=== PATIENT | male | born 1975 ===

== ENCOUNTER 2016-10-12 22:18 | Emergency (ER) | payer SELFPAY ==
[2016-10-12] MEDS ORDERED: DiphenhydrAMINE 50 mg/ml Inj IVP STA (22:50)
[2016-10-12] MEDS ORDERED: Sodium Chloride 0.9% 1,000 ML IV ONE (22:51)
[2016-10-12] MEDS ORDERED: Sodium Chloride 0.9% 1,000 ML ONE (22:55)
--- NOTE | 2016-10-12 22:55 | C.PDOC ---
History Of Present Illness A 41 y/o male c/o itchy scattered urticaria that began tonight. Pt denies SOB, fever, chills, swelling of the throat, discharge, nausea, vomiting, new foods or substances. Time Seen by Provider: 10/12/16 22:54 Chief Complaint (Nursing): Allergic Reaction History Per: Patient History/Exam Limitations: no limitations Onset/Duration Of Symptoms: Hrs Current Symptoms Are (Timing): Still Present Possible Cause: Unknown Associated Symptoms: Itching. denies: Swelling, Trouble Swallowing Severity: Mild Recent travel outside of the [place]: No Additional History Per: Patient Past Medical History Reviewed: Historical Data, Nursing Documentation, Vital Signs Vital Signs: Last Vital Signs Temp 97.6 F 10/13/16 00:13 Pulse 71 10/13/16 00:13 Resp 18 10/13/16 00:13 BP 109/69 10/13/16 00:13 Pulse Ox 99 10/13/16 00:13 Family History: States: Unknown Family Hx - Social History Hx Alcohol Use: Yes Hx Substance Use: No - Immunization History Hx Tetanus Toxoid Vaccination: Yes Hx Influenza Vaccination: Yes Hx Pneumococcal Vaccination: No Review Of Systems Except As Marked, All Systems Reviewed And Found Negative. Constitutional: Negative for: Fever, Chills ENT: Negative for: Throat Swelling Respiratory: Negative for: Shortness of Breath Gastrointestinal: Negative for: Nausea, Vomiting Skin: Positive for: Rash (Itchy scattered urticaria). Negative for: Other ( discharge) Physical Exam - Physical Exam Appears: Non-toxic, No Acute Distress Skin: Warm, Dry, Rash (Scattered urticaria, itchy) Head: Atraumatic, Normacephalic Eye(s): bilateral: Normal Inspection Oral Mucosa: Moist Throat: Normal, No Exudate Neck: Trachea Midline, Supple Chest: Symmetrical Cardiovascular: Rhythm Regular, No Murmur Respiratory: Normal Breath Sounds, No Rales, No Rhonchi, No Wheezing Gastrointestinal/Abdominal: Soft, No Tenderness Back: Normal Inspection, No CVA Tenderness Extremity: Normal ROM, No Tenderness, No Pedal Edema, No Deformity, No Swelling Neurological/Psych: Oriented x3, Normal Speech, Normal Cognition Gait: Steady ED Course And Treatment O2 Sat by Pulse Oximetry: 14 Pulse Ox Interpretation: Normal Medical Decision Making Medical Decision Making: Impression: 41 y/o male c/o itchy scattered urticaria that began tonight Plans: IV fluids, benedryl, Pepcid, Prednisolone, reassess Disposition Counseled Patient/Family Regarding: Diagnosis - Disposition Referrals: [facility] at [facility] [Outside] Disposition: HOME/ ROUTINE Disposition Time: 00:41 Condition: IMPROVED Prescriptions: DiphenhydrAMINE [Benadryl] 50 mg PO Q6 #14 cap Methylprednisolone [Medrol Dose Pack (21 tabs)] 4 mg PO DAILY #21 mg Instructions: Urticaria (GEN), General Allergic Reaction (ED) - POA Present On Arrival: None - Clinical Impression Clinical Impression: Allergic urticaria - Scribe Statement The provider has reviewed the documentation as recorded by the Scribe Carlito fishre All medical record entries made by the Scribe were at my direction and personally dictated by me. I have reviewed the chart and agree that the record accurately reflects my personal performance of the history, physical exam, medical decision making, and the department course for this patient. I have also personally directed, reviewed, and agree with the discharge instructions and disposition.
[2016-10-12] MEDS ORDERED: DiphenhydrAMINE 50 mg/ml Inj ONE (22:56)
[2016-10-13 00:14] VITALS: BP 109/69; PULSE 71; RESP 18; TEMP 97.6
[2016-10-13 00:43] VITALS: O2SAT 14
== END 2016-10-13 00:49 | disposition home or self-care (01) ==
LOC: C.ER 22:18
DX: L50.0 Allergic urticaria (principal)
CPT/HCPCS: 96361; 96374; 96375; 99284; J1200; J2930; J7040